=== PATIENT | male | born 1950 | race Caucasian/White ===

== ENCOUNTER 2021-05-09 10:12 | Emergency (ER) | payer MEDICARE, OTHER, SELFPAY ==
[2021-05-09 10:13] VITALS: BP 134/78; PULSE 85; RESP 14; TEMP 36.4; O2SAT 99; BMI 22.9
--- NOTE | 2021-05-09 10:39 | EDS_ITS ---
HPI History of Present Illness Chief Complaint: Abd Pain Informant: patient Onset/Context/Timing Onset: Days (3 days) Context: Gradual Onset Current Severity: Mild Maximum Severity: Moderate Narrative Narrative: Patient presents with a 3-day history of vomiting and diarrhea. This morning he felt dizzy and is concerned that he is getting too dehydrated. He does report some crampy mid abdominal pain. He has had chills but no fever. He does report a slight cough. [facility] Medical History Enlarged prostate Home Medications aspirin 81 mg PO DAILY 05/09/21 [History Last Taken Unknown] loratadine [Claritin] 10 mg PO DAILY 05/09/21 [History Last Taken Unknown] omega 3-aet-yfx-fish oil [Fish Oil] 1 cap PO DAILY 05/09/21 [History Last Taken Unknown] ondansetron 4 mg PO Q8H PRN #10 tab 05/09/21 [Rx Last Taken Unknown] tamsulosin 0.8 mg PO DAILY 05/09/21 [History Last Taken Unknown] Allergy/AdvReac Type Severity Reaction Status Date / Time sulfamethoxazole Allergy Rash Verified 05/09/21 10:13 [From Bactrim] trimethoprim [From Bactrim] Allergy Rash Verified 05/09/21 10:13 lactose AdvReac Other Verified 05/09/21 10:13 Surgical History H/O hernia repair History of cholecystectomy Social History Smoking Status: Never smoker ROS ROS ED Constitutional Constitutional ED: Reports chills Eyes Eyes: Denies blurry vision or change in vision ENT ENT ED: Denies rhinorrhea or sore throat Cardiovascular Cardiovascular: Denies chest pain or palpitations Respiratory/Chest Respiratory/Chest: Denies cough or dyspnea Gastrointestinal Gastrointestinal: Reports abdominal pain, diarrhea, nausea and vomiting Genitourinary Genitourinary ED: Denies dysuria Integumentary Denies rash Neurologic Neurologic: Reports other Details: Dizziness this morning ; Denies headache(s) or weakness Allergic/Immunologic Allergic/Immunologic ED: Denies urticaria EXAM Physical Exam Const Vital Signs: 05/09/21 10:13 05/09/21 12:56 Temperature 97.6 F L Temperature Source Temporal Pulse Rate 85 Respiratory Rate 14 17 Blood Pressure 134/78 H Blood Pressure Mean 96 Pulse Ox 99 Oxygen Delivery Method Room Air Room Air Positive well nourished and well developed General Appearance ED: well developed Eyes EOMs intact bilaterally Neck supple Chest Wall inspection of chest normal and palpation of chest normal Resp normal respiratory effort and clear to auscultation bilaterally Cardio regular rate and regular rhythm GI non-tender Auscultation: hypoactive bowel sounds Palpation: soft Extremity normal to inspection Neuro oriented x3 Sensorium / Orientation: alert Skin no rashes or lesions noted MDM MDM MDM Narrative Medical decision making narrative: Patient was given IV fluids and Zofran. Lab work and stool studies obtained. Urinalysis obtained. Lab Data Attestation: I reviewed the patient's lab results. Labs: Laboratory Results - last 24 hr 05/09/21 05/09/21 05/09/21 11:07 11:07 11:21 WBC 7.1 RBC 4.84 Hgb 15.2 Hct 44.7 MCV 92.4 MCH 31.4 MCHC 34.0 RDW Std Deviation 39.9 RDW Coeff of [place] 11.8 Plt Count 201 MPV 10.4 Immature Gran % (Auto) 0.100 Neut % (Auto) 69.0 Lymph % (Auto) 11.8 L [place] % (Auto) 18.3 H Eos % (Auto) 0.4 Baso % (Auto) 0.4 Absolute Neuts (auto) 4.9 Absolute Lymphs (auto) 0.84 Nucleated RBC % 0 Sodium 129 L Potassium 3.9 Chloride 94 L Carbon Dioxide 25.0 Anion Gap 10 BUN 12 Creatinine 0.75 Estim Creat Clear Calc 69.55 Est GFR (MDRD) Af Amer 131 Est GFR (MDRD) Non-Af 108 BUN/Creatinine Ratio 15.9 Glucose 100 Calcium 8.4 L Total Bilirubin 0.40 Direct Bilirubin 0.09 AST 28 ALT 38 Alkaline Phosphatase 64 Total Protein 7.1 Albumin 3.5 Globulin 3.6 Lipase 59 L Urine Color Yellow Urine Clarity Clear Urine pH 6.0 Ur Specific [place] 1.015 Urine Protein 30 H Urine Glucose (UA) Normal Urine Ketones 150 A* Urine Occult Blood 10 H Urine Nitrite Negative Urine Bilirubin Negative Urine Urobilinogen Normal Ur Leukocyte Esterase Negative Urine RBC 0-5 SEEN Urine WBC 0-5 SEEN Ur Squamous Epith Cells 0 SEEN Urine Bacteria 0 SEEN Urine Mucus 0 SEEN Treatment and Re-Evaluation Comments:: Lab work reviewed with the patient. He states he normally runs a low sodium. Stool studies do return negative for C. difficile and enteric pathogen panel is negative. Patient will take Imodium to control his diarrhea now that we have the negative stool studies. I will write him a prescription for Zofran. Discharge Plan Triage Chief Complaint: Abd Pain ED Provider: Rosibel Titus Dx/Rx/DC Orders Clinical Impression: Gastroenteritis Instructions: ED Gastroenteritis, Noninfectious Prescriptions: New ondansetron 4 mg tablet,disintegrating 4 mg PO Q8H PRN (Reason: nausea and vomiting) Qty: 10 RF: 0 No Action tamsulosin 0.4 mg capsule 0.8 mg PO DAILY RF: 0 aspirin 81 mg Tablet 81 mg PO DAILY RF: 0 loratadine [Claritin] 10 mg Tablet 10 mg PO DAILY RF: 0 omega 8-zbh-eas-fish oil [Fish Oil] 1,000 mg (120 mg-180 mg) Capsule 1 cap PO DAILY RF: 0 Primary Care Provider: Rodríguez Jarquin Referrals: Rodríguez Jarquin MD [Primary Care Provider] - 3-5 Days if not improving Disposition Disposition: Home, Self Care
[2021-05-09] MEDS: Ondansetron 4 MG/2 ML Vial IV (11:07)
[2021-05-09] MEDS: 0.9% Normal Saline 1,000 ML 1000 ML IV (11:15)
[2021-05-09 11:18] LABS: Absolute Lymphocyte Count 0.84 X10^3/uL (0.83-4.51); Absolute Neutrophil Count 4.9 X10^3/uL (2.0-7.7); Basophil# 0.03 X10^3/uL; Basophil% 0.4 % (0-1); Eosinophil# 0.03 X10^3/uL; Eosinophils% 0.4 % (0-5); Hematocrit 44.7 % (40-54); Hemoglobin 15.2 g/dL (13.0-16.5); Lymphocyte # 0.84 X10^3/ul (0.83-4.51); Lymphocyte % 11.8 % (19-41); Mean Corpuscular Hgb 31.4 pg (27.0-32.0); Mean Corpuscular Volume 92.4 fL (80-94); Mean Platelet Vol. 10.4 fl (6.2-12.0); Monocyte% 18.3 % (0-10); NRBC Flagged by Analyzer 0 % (0-5); Neutrophil # 4.88 X10^3/uL (2.7-7.7); Platelet Count 201 K/mm3 (150-450); RBC Distribution Width CV 11.8 % (11.6-14.6); RBC Distribution Width SD 39.9 fl (35.1-43.9); Red Blood Count 4.84 M/mm3 (4.6-6.2); White Blood Count 7.1 K/mm3 (4.4-11.0)
[2021-05-09 11:32] LABS: Bacteria 0 SEEN /hpf (None Seen); Mucous, Urine 0 SEEN /hpf (<or=2+); Squamous Epithelial Cells - UA 0 SEEN /hpf (0-5)
[2021-05-09 11:36] LABS: AST(SGOT) 28 U/L (15-37); Alanine Aminotransfer ALT/SGPT 38 U/L (16-61); Albumin, Serum 3.5 g/dL (3.2-5.0); Alkaline Phosphatase 64 U/L (45-117); Anion Gap 10 (5-15); BUN 12 mg/dL (7-18); BUN/Creat Ratio 15.9 RATIO (10-20); Bilirubin, Direct 0.09 mg/dL (0.00-0.30); Calcium,Total 8.4 mg/dL (8.5-10.1); Chloride 94 mmol/L (98-107); Creatinine, Serum 0.75 mg/dL (0.70-1.30); EST Glomerular Filtration Rate 108 mL/min (>60); Est Glom Filt Rate - Afr Amer 131 mL/min (>60); Estimated Creatinine Clearance 69.55 ml/min; Globulin 3.6 g/dL (2.2-4.2); Glucose 100 mg/dL (74-106); Lipase 59 U/L (73-393); Potassium 3.9 mmol/L (3.5-5.1); Protein, Total 7.1 g/dL (6.4-8.2); Sodium Level 129 mmol/L (136-145)
[2021-05-09 11:54] LABS: Color, Urine Yellow (Yellow); Glucose, Dipstick Normal (Normal); Leukocyte Esterase-Dipstick Negative /ul (Negative); Nitrite-Dipstick Negative (Negative); Occult Blood-Urine 10 /ul (Negative); Protein-Dipstick 30 mg/dl (Negative); Specific Gravity, Urine 1.015 (1.002-1.030); Urine Bilirubin Dipstick Negative (Negative); Urine Clarity Clear (Clear); Urine Urobilinogen Normal (Normal)
[2021-05-09 11:59] LABS: Ketone-Dipstick 150 mg/dl (Negative)
[2021-05-09 12:04] LABS: Red Blood Cells-Urine 0-5 SEEN /hpf (0-5); White Blood Cells 0-5 SEEN /hpf (0-5)
[2021-05-09] MEDS: 0.9% Normal Saline 1,000 ML 999 ML IV (12:54)
[2021-05-09 12:56] VITALS: RESP 17
[2021-05-09 14:56] VITALS: BP 128/76; PULSE 70; RESP 12; O2SAT 94
== END 2021-05-09 14:56 | disposition home or self-care (01) ==
PROVIDERS: Emergency Provider Emergency Medicine; PCP Family Medicine
DX: K52.9 Noninfective gastroenteritis and colitis, unspecified (principal); N40.0 Benign prostatic hyperplasia without lower urinary tract symptoms; Z79.82 Long term (current) use of aspirin; R05 Cough; R42 Dizziness and giddiness; Z90.49 Acquired absence of other specified parts of digestive tract
CPT/HCPCS: 80048; 80076; 81001; 83630; 83690; 85025; 87177; 87209; 87493; 87506; 99283; J7030; A4216; J2405